=== PATIENT | female | born 1965 | race African-American/Black ===

== ENCOUNTER 2021-03-12 20:51 | Emergency (ER) | payer OTHER ==
[~2021-03-12] VITALS: Ht 165.1 cm; Wt 82.0 kg
[~2021-03-12 20:51] MED LIST: ALBUTEROL; SINGULAIR
[2021-03-12] MEDS ORDERED: IPRATROPIUM BROMIDE (0.02%) 0.5MG/2.5ML NEB HHN STA (21:08)
[2021-03-12] MEDS ORDERED: METHYLPREDNISOLONE SOD SUCC 125 MG/2 ML VIAL IV STA (21:08)
[2021-03-12] MEDS ORDERED: ALBUTEROL (0.083%) 2.5MG/3ML NEB HHN STA (21:08)
[2021-03-13] MEDS ORDERED: P50 MT (00:17)
[2021-03-13 00:31] VITALS: BP 122/85
== END 2021-03-13 00:32 | disposition home or self-care (01) ==
LOC: ER 20:51
DX: J45.901 Unspecified asthma with (acute) exacerbation (principal)
CPT/HCPCS: 71045; 87426; 94644; 96374; 99284; J2930; Z7610